=== PATIENT | female | born 1955 | race Caucasian/White ===

== ENCOUNTER 2024-03-24 | Day surgery (SDC) | payer MEDICARE, BC ==
[2024-03-24] MEDS ORDERED: Propofol 200 MG/20 ML SDV IV ONE (00:01)
[2024-03-24] MEDS ORDERED: Lidocaine 2% 100 MG/5 ML Syringe IVPUSH ONE (00:01)
[2024-03-24] MEDS ORDERED: Sodium Chloride 0.9% 10 ML Syringe FLUSH PRN (07:30)
[2024-03-24] MEDS: Lactated Ringers 1,000 ML IV SCH (08:33)
[2024-03-24] MEDS: Simethicone Drops 40 MG/0.6 ML 30 ML Bottle ONE (09:00)
[2024-03-24] MEDS: Ondansetron 4 MG/2 ML SDV IVPUSH PRN (10:44)
== END 2024-03-24 11:45 | disposition home or self-care (01) ==
LOC: FB.SDS
PROVIDERS: ATTEND Surgery
DX: Z12.11 Encounter for screening for malignant neoplasm of colon (principal); K63.5 Polyp of colon; K57.30 Diverticulosis of large intestine without perforation or abscess without bleeding; E78.5 Hyperlipidemia, unspecified; I10 Essential (primary) hypertension; E66.9 Obesity, unspecified; Z68.30 Body mass index [BMI] 30.0-30.9, adult; Z88.0 Allergy status to penicillin; Z80.0 Family history of malignant neoplasm of digestive organs; Z79.899 Other long term (current) drug therapy; Z86.0101 Personal history of adenomatous and serrated colon polyps
CPT/HCPCS: 00811; 88305; A9270-GY; J2405; J2704; J7120